=== PATIENT | female | born 1950 | race Caucasian/White ===

== ENCOUNTER → 2018-04-08 | Outpatient (CLI) | payer OTHER, MEDICARE ==
[~2018-04-08] MED LIST: ATIVAN0.5 MG PO; BACTRIM DS TAB1 EACH PO; CALCIUM 500 +1 EAC5 PO; CENTRUM CHEWAB1 EACH PO; CHERATUSSIN DA480 ML PO; CIPROFLOXACIN500 M3 GT; COMPAZINE10 MG PO; FISH OIL 1,2001 EAC4 PO; GLUCOSAMINE HC500 MG PO; LEVAQUIN 500 M500 M2 PO; MEDROLDOSEPACK PO; NIASPAN ER 101000 M1 PO; PREDNISONE 10 M10 MG PO; PRILOSEC 20 MG20 MG PO; PROAIR HFA8.5 GM IH; SPIRIVA INH; STIOLTO RESPIMAT4 GM INH; VICODIN 5-5001 EACH PO; VISTARIL 25 MG25 M1 PO; VITAMIN E400 UNIT PO; VITCB500GO PO
== END ==
LOC: M.RAD 06:48
DX: Z12.31 Encounter for screening mammogram for malignant neoplasm of breast (principal)

== ENCOUNTER → 2018-04-25 | Outpatient (CLI) | payer OTHER, MEDICARE | LOC: M.CT 06:38 | DX: I70.0 Atherosclerosis of aorta (principal); C54.1 Malignant neoplasm of endometrium ==

== ENCOUNTER → 2018-04-25 | Outpatient (CLI) | payer OTHER | LOC: M.CT 06:47 | DX: Z13.6 Encounter for screening for cardiovascular disorders (principal) ==

== ENCOUNTER → 2019-04-10 | Outpatient (CLI) | payer OTHER, MEDICARE | LOC: M.RAD 06:47 | DX: Z12.31 Encounter for screening mammogram for malignant neoplasm of breast (principal) ==

== ENCOUNTER → 2020-04-16 | Outpatient (CLI) | payer OTHER, MEDICARE ==
[~2020-04-16] MED LIST changes: +GABAPENTIN100 MG PO; +LISINOPRIL2.5 MG PO; +OXYCODONE HCL 55 MG PO; -PRILOSEC 20 MG20 MG PO; +Prilosec PO; +TIZANIDINE HCL 22 M1 PO; +VITAMIN D325 MC1 PO
== END ==
LOC: M.RAD 09:29
PROVIDERS: ATTEND Family Medicine
DX: N63.10 Unspecified lump in the right breast, unspecified quadrant (principal)

== ENCOUNTER → 2020-04-17 | Outpatient (CLI) | payer OTHER, MEDICARE ==
--- NOTE | 2020-04-23 11:08 | PATH ---
[address] [address] PATHOLOGY RPT PROCEDURE Name: CASEARACELI Room: [facility] BRI Love#: [id number] Admission: 04/17/20 Date of : 48 Discharge: Report #: [id number] Path Case #: [id number] LCA Accession Number: [id number] . 01 Material submitted: . breast - RIGHT BREAST MASS, 2:30, 7CM FROM NIPPLE. Modifiers: right, 2:00 . 01 Clinical history: . Right breast mass . 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 SEE COMMENT. (CESARIO:preeti; 04/18/2020) MBR 04/18/2020 1240 Local . 02 Comment: Specimen type: Image-guided core biopsies Tumor site: Right breast, 2:30, 7 cm from nipple Tumor quantitation: Approximately 95% of submitted tissues Histologic type: Ductal adenocarcinoma Histologic grade: III of III Tubules, nuclei and mitoses: 3, 3, 3 LVSI: Not identified Microcalcifications: Not identified Markers: Breast tumor profile pending Block: A1 . . There is no DCIS or LCIS identified. A small fragment of papilloma in A2 shows epithelial atypia. Breast tumor profile studies are pending on A1 and will be the subject of an addendum report. Reviewed with Dr. Cori Martin who agrees with the diagnosis. Debbie You(acting [facility] breast navigator) notified at approximately 1235 on 04/18/2020. . (CESARIO:preeti; 04/18/2020) . 02 Addendum: . Special studies report received from [facility], [address] [place] [address], [address], [place], [address], on case [id number], labeled with their number [id number], dated 04/22/2020. . Breast/Prognostic Marker Analysis . Specimen Site: Breast - Breast Cancer Specimen ID #: [id number] . [place] [address] PATHOLOGY RPT PROCEDURE Name: ARACELI HOLLINS [id number] Admission: 04/17/20 Date of : 48 Discharge: Report #: [id number] Path Case #: [id number] ER (Estrogen Receptor) Absent/Negative Percent: 0.00 Analysis: Manual . TN (Progesterone Receptor) Absent/Negative Percent: 0.00 Analysis: Manual . HER2 Not Over-Expressed Score: 0 Analysis: Manual Reference Range . Ki-67 High Proliferation Percent: 45.00% Analysis: Manual . Time to Fixation (Cold Ischemic Time): 3 minutes Duration of Fixation: Not Provided Type of Fixative: 10% Neutral Buffered Formalin . Comments: ER/PgR testing at [facility]. is performed in compliance with the ASCO/CAP Clinical Practice Guidelines. If the result for ER is less than 1% it is reported as Negative; if the ER result is 1-10% it is reported as Low Positive; if the ER result is greater than 10% it is reported as Positive. If the result for PgR is less than 1% it is reported as Negative; if the PgR result is equal to or greater than 1%, it is reported as Positive. . REF: Casie KH, Mallika DORADO, et al: Estrogen and Progesterone Receptor Testing in Breast Cancer. ASCO/CAP Guideline Update. DOI 10.5858/arpa.9326-0417-SD. . Whole slide image capture is performed using Yadio (Vakast) platform. Image analysis, if ordered, is performed using interclick software. . at [facility]. Aj Tavares MD [place] [address] PATHOLOGY RPT PROCEDURE Name: CASEARACELI Room: [facility]#: [id number] Admission: 04/17/20 Date of : 48 Discharge: Report #: [id number] Path Case #: [id number] Methodology The HER2 Receptor protein expression is analyzed using the [place] HER2 rabbit monoclonal antibody (clone 4B5). This assay is used for diagnostic determination of the HER2 protein over-expression in paraffin embedded, formalin fixed breast cancer tissue on the [place] Benchmark. The specimen is processed using a secondary antibody-HRP conjugate detection system. The membrane staining of the tumor is determined either by manual score or image analysis. This antibody is intended for in vitro diagnostic use. The score is reported as 0, 1+, 2+, or 3+. This test is used for clinical purposes. . A rabbit monoclonal antibody (clone SP1) that recognized the Estrogen Receptor is used to perform immunohistochemistry on routinely fixed (formalin) paraffin embedded tissue on the [place] Benchmark. The specimen is processed using a secondary antibody-HRP conjugate detection system. The percentage of stained tumor nuclei is determined either manually or by image analysis. This test is intended for in vitro diagnostic use. This test is used for clinical purposes. . A rabbit monoclonal antibody (clone 1E2) that recognized the Progesterone Receptor is used to perform immunohistochemistry on routinely fixed (formalin) paraffin embedded tissue on the [place] Benchmark. The specimen is processed using a secondary antibody-HRP conjugate detection system. The percentage of stained tumor nuclei is determined either manually or by image analysis. This test is intended for in vitro diagnostic use. This test is used for clinical purposes. . A rabbit monoclonal antibody (clone 30-9) that recognized Ki67 is used to perform immunohistochemistry on routinely fixed (formalin) paraffin embedded tissue on the [place] Benchmark. The specimen is processed using a secondary antibody-HRP conjugate detection system. The percentage of stained tumor nuclei is determined either manually or by image analysis. This test is intended for in vitro diagnostic use. This test is used for clinical purposes. . Intended Use: This antibody is intended for in vitro diagnostic (IVD) use. HER2 (4B5) is a rabbit monoclonal antibody intended for the semi-quantitative detection of HER2 antigen in sections of formalin-fixed, paraffin embedded normal and neoplastic tissue. . This antibody is intended for in vitro diagnostic (IVD) use. Estrogen Receptor (ER) (SP1) is a rabbit monoclonal antibody (IgG) that is intended for the qualitative detection of estrogen receptor (ER) antigen in sections of formalin-fixed, paraffin-embedded tissue. ER is a rabbit monoclonal antibody that recognizes human estrogen receptor alpha. . This antibody is intended for in vitro diagnostic (IVD) use. Progesterone Receptor (TN) (1E2) is a rabbit monoclonal antibody (IgG) [place] [address] PATHOLOGY RPT PROCEDURE Name: CASEARACELI Room: [facility]#: [id number] Admission: 04/17/20 Date of : 48 Discharge: Report #: [id number] Path Case #: [id number] for the qualitative detection of progesterone receptor (TN) antigen in sections of formalin fixed, paraffin embedded tissue. TN is a rabbit monoclonal antibody that recognizes the A and B forms of the human progesterone receptor. . This antibody is intended for in vitro diagnostic (IVD) use. Ki-67 (30-9) is a rabbit monoclonal antibody (IgG) directed against C-terminal portion of Ki-67 antigen. Staining for Ki-67 can be used to aid in assessing the proliferative activity of normal and neoplastic tissue. Ki-67 is a nuclear protein expressed in proliferating cells. During the cell cycle, the Ki-67 antigen is present in the G1, S, G2 and M phase but is absent in the G0 (quiescent phase). . . Disclaimer: This Test was performed by [facility]. at [address], [place] [address], [place], [address]. . [facility] is a business unit of [facility]. a wholly-owned subsidiary of [employer]. . This assay has not been validated on decalcified tissues. Results should be interpreted with caution if this specimen was decalcified given the likelihood of false negativity on decalcified specimens. . Any image(s) that accompany this report is/are a manufacturer's representative image(s) only and should not be used to render a diagnosis. . This interpretation is contingent on the specimen and the clinical information received. . For any special tests/stains performed, known positive cells or tissues are tested with each marker and examined to ensure positivity. Positive and negative internal controls, if present, react appropriately. . This analysis is an adjunct to the evaluation of the referring physician and does not represent a final diagnosis. . The immunohistochemistry tests performed at [facility]. were validated on tissue fixed in 10% neutral buffered formalin. The performance characteristics of the tests performed on tissue processed in other fixatives is not known. . HER2 testing at [facility]., is performed in compliance with the 2018 updated ASCO/CAP Clinical Practice Guideline Focused Update. If the result is EQUIVOCAL (2+), it must be confirmed by an alternative assay such as FISH or Dual VANESSA. REF: Criss ESTRADA, AVE Tena et al: Human Epidermal Growth Factor Receptor 2 [place] [address] PATHOLOGY RPT PROCEDURE Name: ARACELI HOLLINS [facility] [id number] Admission: 04/17/20 Date of : 48 Discharge: Report #: [id number] Path Case #: [id number] Testing in Breast Cancer: ASCO/CAP Clinical Practice Guideline Focused Update. J Clin Oncol 36:9831-6488, 2018. . HER2 and ER/TN ASCO/CAP guidelines require fixation in neutral buffered formalin for a minimum of 6 and a maximum of 72 hours. Fixation times less than 6 hours may not adequately preserve cell proteins. Fixation times longer than 72 hours may cause excess cross-linking of proteins reducing the antigen available for staining. Either scenario can cause reduced staining; hence false negative results are possible and should be considered for these situations if the HER2 IHC score is less than 3+ or ER or TN is negative (no staining or <1% positive). It is recommended that specimens fixed longer than 72 hours with HER2 IHC scores less than 3+ be confirmed by HER2 FISH or Dual VANESSA. The time from biopsy/excision to fixation in formalin (cold ischemic time) must be less than 1 hour. Time to fixation (cold ischemic time) greater than 1 hour should be interpreted with caution. HER2 testing, mainly HER2 by FISH, is particularly vulnerable since excessive cold ischemic time results in preferential loss of HER2 probe signals that may lead to false negative results. . SCORE STAINING PATTERN IN TUMOR CELLS INTERPRETATION RESULTS 0 No staining observed or incomplete, faint membrane staining in less than or equal to 10% of tumor cells. Negative 1+ Incomplete, faint membrane staining in greater than 10% of tumor cells. Negative 2+ Weak to moderate complete membrane staining observed in greater than 10% of tumor cells. Equivocal* *Must be confirmed by alternative assay (IHC/FISH/Dual VANESSA) 3+ Intense, complete membrane staining in greater than 10% of tumor cells. Positive . A complete copy of the report is on file. . Professional and Technical services performed by [facility]. at [address], [place] [address], [place] [address]. . (CESARIO:carlos 04/23/2020) . [place]Freddie/04/23/2020 Addendum Electronically Signed by Peter Alvarez MD, Pathologist . 02 Electronically signed: . Peter Alvarez MD, [place] [address] PATHOLOGY RPT PROCEDURE Name: ARACELI HOLLINS Room: [facility]#: [id number] Admission: 04/17/20 Date of : 48 Discharge: Report #: [id number] Path Case #: [id number] NPI- [id number] . 01 Gross description: . The specimen is received in formalin, labeled "Araceli Hollins, right breast 2:30 7 cm from nipple". Received are multiple needle cores of fibrofatty tissue measuring 1.3 x 0.8 x 0.1 cm in aggregate dimensions. The specimen is submitted entirely in cassettes A1 through A3. The cold ischemic time is 3 minutes. The total formalin fixation time is 12 hours and 37 minutes. (CAA; 04/17/2020) QAC/QAC 04/17/2020 1705 Local . 02 Pathologist provided ICD-10: C50.911 . 02 CPT . 071162 Specimen Comment: A courtesy copy of this report has been sent to [phone] Specimen Comment: [phone], Specimen Comment: Report sent to ,DR LUU / DR WONG Performed at: [address] [facility], [place], [place] [address] MD Jonh Cheatham MD Phone: [phone] Performed at: 02 [facility] [address], [place], [place] [id number] MD Peter Alvarez MD Phone: [phone]
== END | disposition home or self-care (01) ==
LOC: M.ULTRA 07:49
PROVIDERS: ATTEND Family Medicine
DX: C50.911 Malignant neoplasm of unspecified site of right female breast (principal); R92.1 Mammographic calcification found on diagnostic imaging of breast; J44.9 Chronic obstructive pulmonary disease, unspecified; Z88.0 Allergy status to penicillin; Z88.8 Allergy status to other drugs, medicaments and biological substances; Z79.899 Other long term (current) drug therapy; Z98.890 Other specified postprocedural states

== ENCOUNTER → 2020-04-29 | Outpatient (CLI) | payer OTHER ==
[2020-04-29 13:33] LABS: CREATININE 0.8 mg/dL (0.6-1.3)
== END ==
LOC: M.LAB 13:09 → M.MRI 14:30
PROVIDERS: ATTEND Surgery
DX: C50.919 Malignant neoplasm of unspecified site of unspecified female breast (principal); Z90.12 Acquired absence of left breast and nipple; R92.1 Mammographic calcification found on diagnostic imaging of breast

== ENCOUNTER 2020-05-07 05:59 | Observation (INO) | payer OTHER, MEDICARE ==
[~2020-05-07] VITALS: Ht 157.5 cm; Wt 75.3 kg
--- NOTE | ~2020-05-07 | H ---
[address] [address] HISTORY AND PHYSICAL Name: ARACELI WOODRUFF Room: [address] Jolie Love#: [id number] Admission: 05/07/20 Attend Phys: Luis Norton DO Discharge: 05/08/20 Date of : 48 Report #: [id number] THIS REPORT FOR: //name// cc: Chye Kim MD, Tuongvan T. MD ~ THIS REPORT FOR: //name// Please refer to the History and Physical performed in the physician's office. By: [facility]3Medical Records Staff [facility] /[facility]
--- NOTE | ~2020-05-07 | OP ---
[address] [address] OPERATIVE REPORT Name: ARACELI WOODRUFF Room: [address] Jolie Love#: [id number] Admission: 05/07/20 Attend Phys: Luis Norton DO Discharge: 05/08/20 Date of : 48 Report #: [id number] THIS REPORT FOR: //name// cc: Chey Kim MD, Tuongvan T. MD ~ THIS REPORT FOR: //name// CC: Luis Carson MD DICTATED BY: Mary Perez DO DATE OF SERVICE: 05/07/2020 Dictating operative report for Dr. Luis Norton DO PREOPERATIVE DIAGNOSIS: Invasive ductal carcinoma of the right breast. POSTOPERATIVE DIAGNOSIS: Invasive ductal carcinoma of the right breast. PRIMARY SURGEON: Luis Norton DO TIP PRINTER: Mary Perez DO, PGY2 OPERATION PERFORMED: Right simple mastectomy and right axillary deep sentinel lymph node biopsy and left subclavian vein Port-A-Cath placement with fluoroscopy guidance. ANESTHESIA: General. ESTIMATED BLOOD LOSS: 20 mL. SPECIMEN REMOVED: Right breast and right axillary sentinel lymph node. COMPLICATIONS: None. INDICATIONS FOR PROCEDURE: The patient is a pleasant 69-year-old female that presented to our office with invasive ductal carcinoma of the right breast. She was discussed at the multidisciplinary tumor board. She did have a history of previous left breast cancer as well, was recommended based on her pathology and tumor markers that she undergo a right mastectomy with sentinel lymph node dissection for biopsy. The procedure, risks, benefits, possible complications to include bleeding, infection, injury to surrounding structures, need for additional surgery, wound healing complications, pneumothorax, numbness or [address] [address] OPERATIVE REPORT Name: ARACELI WOODRUFF Room: [address] Jolie Love#: [id number] Admission: 05/07/20 Attend Phys: Luis Norton, DO Discharge: 05/08/20 Date of : 48 Report #: [id number] tingling at the incision site, risks of anesthesia and other risks of surgery were all discussed with the patient in great detail. She voiced complete understanding and wished to proceed with surgery. DESCRIPTION OF PROCEDURE: Informed consent was obtained. The patient was taken to the operating room and placed supine on the operating room table. General LMA anesthesia was induced without difficulty. SCDs were placed on bilateral lower extremities. Preoperative antibiotics were given. The patient's left arm was tucked at her side with all pressure points padded. The right breast and axilla were prepped and draped in the standard sterile fashion. Marking pen was used to melanie out our planned incision. A timeout was performed to ensure correct patient and procedure. We began by making an elliptical incision on the right breast around the nipple including the previous biopsy site using a #10 blade scalpel. The incision was carried down through the subcutaneous tissue using electrocautery along the inferior aspect of the breast. Electrocautery was used to dissect down to the inframammary fold. Dissection was carried down all the way to the level of the muscle fascia. This was done in the same fashion along the superior aspect of the breast all the way up to the level of the clavicle. The medial aspect of the breast, we dissected down to the level of the muscle fascia and then began to remove the breast from the muscle using electrocautery ensuring that we left the fascia along the way. Hemostasis was achieved using electrocautery. Once the entire right breast was removed, it was then marked with a short stitch superior, a long stitch lateral. Prior to making our incision, we had injected Lymphazurin blue in 4 quadrants around the nipple. Neoprobe was also used to check our uptake at the nipple prior to beginning of the case. Uptake at the nipple was noted to be somewhere between 5000 and 5500. Once the breast was completely excised and we were ready to perform our sentinel lymph node biopsy, the neoprobe was again brought into the field and used to direct us in the correct direction. A deep sentinel lymph node was easily identified, was hot and blue with uptake of up to 675. This was excised without difficulty using a combination of blunt dissection and electrocautery. Once this was passed off for specimen, the axilla was reexamined. Neoprobe was used to check for a second sentinel lymph node. There was no further uptake in the axilla. Our surgical site was then inspected to ensure hemostasis. The wound was copiously irrigated with sterile water. Tom was placed within the surgical site and a 19-Turkish NILS drain was left behind. The subcutaneous tissues were then reapproximated using 3-0 Vicryl suture in a simple interrupted fashion along the incision. The skin was then closed using a 4-0 Monocryl suture in a running subcuticular fashion. Skin was cleansed and dried. Sterile dressing was applied using Mastisol, Steri-Strips, and a large Tegaderm. Once this portion of the case was complete, we then elected to try down the drapes and the left chest was then prepped and draped in the standard sterile fashion in order to perform our Port-A-Cath placement. An 18-gauge finder needle was used to access the left subclavian vein easily with 1 pass of the needle. Dark venous blood return was noted. The syringe was removed and guidewire was passed through the needle. The guidewire passed [facility] [address] [place] [address] OPERATIVE REPORT Name: ARACELI WOODRUFF Room: [address] Jolie Love#: [id number] Admission: 05/07/20 Attend Phys: Luis Norton DO Discharge: 05/08/20 Date of : 48 Report #: [id number] easily without any resistance. The needle was removed. C-arm was brought in to ensure our guidewire was in correct position. Initial escrow secretary images showed that our guidewire was in satisfactory position in the superior vena cava. C-arm was backed away. A #15 blade scalpel was used to make an incision contiguous with the entry site of our guidewire to make room for our port. The incision was carried down through subcutaneous tissues using electrocautery. Combination of electrocautery and blunt dissection were used to form a pocket for our port. Metzenbaum scissors were used to free the wire from the surrounding tissues. Once this was done, C-arm was brought back in. Our dilator and breakaway catheter were then passed over the wire under fluoroscopy vision, the inner dilator and guidewire were then removed. Once this was done, our port catheter was then advanced through the breakaway catheter. C-arm was again used to obtain an image to ensure that the tip of our port catheter was in satisfactory position in the superior vena cava. Once this was done, the breakaway catheter was then broken and removed. Another image was obtained to ensure that our port catheter remained in good position. Once this was done, the C-arm was taken away and the wire within the catheter was removed. The catheter was trimmed to the appropriate length and then attached to our port. Once this was done, a Morrow needle with sterile saline was used to access the port. Dark venous blood return was noted. Catheter flushed very easily. We then secured our port in 3 positions with 2-0 Prolene suture. Once the port was secured in place, the port was then packed with 3000 units of heparin. The incision was then reapproximated. The subcutaneous tissues were approximated using 3-0 Vicryl suture in a simple interrupted fashion. Skin was closed using 4-0 Monocryl suture in a running subcuticular fashion. Skin was cleansed and dried and Dermabond was applied to the incision. The patient tolerated the procedure very well. Once the drapes were taken down, a pressure dressing was placed on our mastectomy site with fluffs, ABD pads and an Eros wrap. The patient was allowed to awaken in the operating room and she was transferred to the PACU in stable condition with plans for a post-procedure chest x-ray. She will be admitted to the floor for further observation and occupational therapy evaluation. By: [id number] Janeth Norton DO /delores
[~2020-05-07 05:59] MED LIST changes: -OXYCODONE HCL 55 MG PO
[2020-05-07 06:30] VITALS: BP 132/78
[2020-05-07 06:36] LABS: HEMATOCRIT 42.9 % (37.0-47.0); HEMOGLOBIN 14.6 gm/dL (12.0-15.0); MCH 29.7 pg (26.0-34.0); MCHC 34.1 g/dL (28.0-37.0); MCV 87.1 fL (80.0-100.0); MPV 10.3 fl. (7.2-11.1); RBC 4.93 mil/uL (4.20-5.00); RDW-CV 14.2 % (10.5-14.5); WBC 4.8 thou/uL (4.0-11.0)
[2020-05-07 06:50] LABS: CALCIUM 8.7 mg/dL (8.5-10.1); CREATININE 0.8 mg/dL (0.6-1.3); POTASSIUM 3.7 mmol/L (3.5-5.1)
--- NOTE | 2020-05-07 09:07 | EKG ---
[place] [address] ELECTROCARDIOGRAM REPORT Name: ARACELI WOODRUFF Room: [address]R.#: [id number] Admission: 05/07/20 Attend Phys: Luis Norton DO Discharge: Date of : 48 Date of Service: 05/07/2037 Report #: [id number] THIS REPORT FOR: //name// [facility] Test Date: 2020-05-07 Test Time: 06:37:33 Pat Name: ARACELI WOODRUFF Department: Room: [place] [address] Gender: F Dining Room Attendant: GEORGINA : 1950 Requested By: Luis Norton Order Number: [id number] MD: Russel Sims Measurements Intervals [place] Rate: 66 P: 57 IN: 156 QRS: 25 QRSD: 76 T: 33 QT: 411 QTc: 431 Interpretive Statements Sinus rhythm Compared to ECG 08/09/2017 03:55:58 No significant changes Electronically Signed On 05-07-2020 9:06:29 CDT by Russel Sims [email or web address] <ELECTRONICALLY SIGNED> By: Russel Sims MD, [facility] 05/07/20905 6 6 Russel Sims MD, [facility] /EPI
[2020-05-07 12:26] VITALS: BP 143/81
[2020-05-07 17:45] VITALS: BP 127/70
--- NOTE | 2020-05-07 17:59 | NUR ---
PT ADMITTED TO ROOM 109 S/P R MASTECTOMY. PT DENIES PAIN, GIVEN TYLENOL FOR MIN DISCOMFORT. PT UP AMBULATING WITH SBA TO BATHROOM. PT ADVANCED TO REGULAR DIET AND TOLERATES WELL. VSS, SURGICAL DRESSING TO CHEST CDI, NO OTHER COMPLAINTS THIS SHIFT
[2020-05-07 20:00] VITALS: BP 120/56
[2020-05-08] VITALS: BP 142/54
[2020-05-08 04:00] VITALS: BP 140/62
--- NOTE | 2020-05-08 04:58 | NUR ---
PT A&O X 4. VSS ON RA. DENIED PAIN. DRESSING INTACT. PT UP INDEPENDENTLY IN THE ROOM. NILS DRAIN IN PLACE. PT SLEEPING/RESTING QUIETLY THROUGH THE NIGHT. NO OTHER CONCERNS AT THIS TIME. WILL CONTINUE TO MONITOR.
[2020-05-08 05:19] LABS: HEMATOCRIT 40.4 % (37.0-47.0); HEMOGLOBIN 13.6 gm/dL (12.0-15.0); MCH 29.2 pg (26.0-34.0); MCHC 33.7 g/dL (28.0-37.0); MCV 86.7 fL (80.0-100.0); MPV 10.8 fl. (7.2-11.1); RBC 4.66 mil/uL (4.20-5.00); RDW-CV 13.9 % (10.5-14.5); WBC 12.8 thou/uL (4.0-11.0)
[2020-05-08 05:36] LABS: CALCIUM 8.7 mg/dL (8.5-10.1); CREATININE 0.7 mg/dL (0.6-1.3); MAGNESIUM 2.1 mg/dL (1.8-2.4); PHOSPHORUS* 3.4 mg/dL (2.5-4.9)
[2020-05-08 08:00] VITALS: BP 161/82
[2020-05-08 10:36] VITALS: BP 161/82
--- NOTE | 2020-05-08 11:13 | NUR ---
ORDER FOR HOME HEALTH FOR DRAIN CARE. PT.DECLINED HOME HEALTH. SHE SAID SHE KNEW HOW TO CARE FOR THEM. HER FAMILY CAN HELP HER IF NEEDED. CHRISTIAN MORALES AWARE.
[2020-05-08] MEDS ORDERED: OXYCODONE HCL 55 MG PO (11:18)
--- NOTE | 2020-05-08 12:02 | NUR ---
RECEIVED REPORT FOR NOC SHIFT. PATIENT UP AD CONSTANZA. 20G IV IN L FOOT, PATENT. VSS. LSCTA. BOWEL SOUNDS ACTIVE. PATIENT TO DISCHARGE TODAY. PATIENT EDUCATED ON NILS DRAIN AND VERBALIZES UNDERSTANDING TO MONITOR DRAIN AND AMOUNT DAILY. DRESSINGS IN PLACE. NO REDNESS OR SWELLING NOTED. DR. MONZON IN TO SEE PATIENT THIS AM AND PUT IN ORDERS TO DISCHARGE PATIENT. ALL DISCHARGE EDUCATION GIVEN AND PATIENT VERBALIZED UNDERSTANDING. PATIENT DAUGHTER PICKED PATIENT UP. PATIENT ESCORTED TO CAR AND ASSISTED INTO CAR.
--- NOTE | 2020-05-13 13:07 | PATH ---
[address] [address] PATHOLOGY RPT PROCEDURE Name: ARACELI HOLLINS Room: [address] Jolie Love#: [id number] Admission: 05/07/20 Date of : 48 Discharge: 05/08/20 Report #: [id number] Path Case #: [id number] [facility] Accession Number: [id number] . 01 Material submitted: . PART A: breast - RIGHT BREAST. Modifiers: right PART B: lymph node - RIGHT SENTINEL NODE. Modifiers: right . 01 Clinical history: . Infiltrating ductal carcinoma left breast. A. Long stitch lateral, short stitch superior. . 02 Diagnosis: A. Right breast: - INFILTRATING DUCTAL ADENOCARCINOMA, HIGH GRADE, SPANNING 12 MM, IN ASSOCIATION WITH PRIOR BIOPSY SITE, WITH INVOLVEMENT OF SUPERIOR/ANTERIOR MARGIN FOR AT LEAST 5 MM SPAN. - FOCAL DUCTAL CARCINOMA IN SITU (DCIS), NUCLEAR GRADE III, SOLID TYPE, SPANNING 1 MM. SEE COMMENT. . B. Right sentinel node: - One benign lymph node (0/1). See comment. (CESARIO:jim; 05/13/2020) . . Surgical Pathology Cancer Case Summary . Protocol posting date: December 2019 . INVASIVE CARCINOMA OF THE BREAST: Resection . . Procedure ___ Total mastectomy (including nipple-sparing and skin-sparing mastectomy) . Specimen Laterality ___ Right . + Tumor Site + ___ Upper inner quadrant . Tumor Size ___ Greatest dimension of largest invasive focus >1 mm (specify exact measurement) (millimeters): 12 mm . Histologic Type ___ Invasive carcinoma of no special type (ductal) [place] [address] PATHOLOGY RPT PROCEDURE Name: ARACELI HOLLINS Room: [address] Jolie Love#: [id number] Admission: 05/07/20 Date of : 48 Discharge: 05/08/20 Report #: [id number] Path Case #: [id number] Histologic Grade ([place] Histologic Score) . Glandular (Acinar)/Tubular Differentiation ___ Score 3 (<10% of tumor area forming glandular/tubular structures) . Nuclear Pleomorphism ___ Score 3 (vesicular nuclei, often with prominent nucleoli, exhibiting marked variation in size and shape, occasionally with very large and bizarre forms) . Mitotic Rate ___ Score 3 . Overall Grade ___ Grade 3 (scores of 8 or 9) . + Tumor Focality + ___ Single focus of invasive carcinoma . Ductal Carcinoma In Situ (DCIS) ___ Present + ___ Negative for extensive intraductal component (EIC) . + Size (Extent) of DCIS + Estimated size (extent) of DCIS is at least: 1 mm + Number of blocks with DCIS: 1 + Number of blocks examined: 10 . + Architectural Patterns + ___ Solid . + Nuclear Grade + ___ Grade III (high) . + Necrosis + ___ Not identified . + Lobular Carcinoma In Situ (LCIS) + ___ Not identified . Tumor Extension: Skin ___ Skin is present and uninvolved . Nipple ___ DCIS does not involve the nipple epidermis . Skeletal Muscle ___ [place] [address] PATHOLOGY RPT PROCEDURE Name: CASEARACELI Room: [address] Jolie Love#: [id number] Admission: 05/07/20 Date of : 48 Discharge: 05/08/20 Report #: [id number] Path Case #: [id number] . Margins . Invasive Carcinoma Margins . ___ Positive for invasive carcinoma ___ Superior/Anterior + Extent (specify): At least 5 mm . DCIS Margins ___ Uninvolved by DCIS . Distance from closest margin: ___ Specify 4 mm . Regional Lymph Nodes ___ Uninvolved by tumor cells Total Number of Lymph Nodes Examined: 1 . Treatment Effect in the Breast ___ No known presurgical therapy . + Lymphovascular Invasion + ___ Not identified . + Dermal Lymphovascular Invasion + ___ Not identified . . PATHOLOGIC STAGE CLASSIFICATION (pTNM, AJCC 8TH EDITION) . Primary Tumor (pT) ___ pT1c:Tumor >10 mm but less than or equal to 20 mm in greatest dimension . Regional Lymph Nodes Modifier ___ (sn):[place] node evaluated. . Regional Lymph Nodes (pN) ___ pN0:No regional lymph node metastasis identified or ITCs only# . + Ancillary Studies . + ___ Breast Biomarker Testing Performed on Previous Biopsy + Testing Performed on A1 . + Estrogen Receptor (ER) + ___ [place] [address] PATHOLOGY RPT PROCEDURE Name: CASEARACELI Room: [address] Jolie Love#: [id number] Admission: 05/07/20 Date of : 48 Discharge: 05/08/20 Report #: [id number] Path Case #: [id number] + Progesterone Receptor (PgR) + ___ Negative . + HER2 (by immunohistochemistry) + ___ Negative (Score 0) . + ___ Ki-67 percentage of positive nuclei: 45% . + Microcalcifications + ___ Present in non-neoplastic tissue QMS 05/13/2020 1209 Local . 02 Comment: The tumor is seen to involve at least a 5 mm span of the inked superior/anterior margin in each of slides A3 through A5. Properly controlled keratin AE1/AE3 performed on B1 shows no evidence of metastatic tumor. (CESARIO:jim; 05/13/2020) . 02 Electronically signed: . Peter Alvarez MD, Pathologist NPI- [id number] . 01 Gross description: . A. The specimen is received in formalin, labeled "Araceli Hollins, right breast, short superior, long lateral". Received is a 506 g mastectomy specimen measuring 20.2 cm from superior to inferior, 18.3 cm from medial to lateral, and 5.3 cm from anterior to posterior. The anterior aspect displays an attached ellipse of skin measuring 18.5 x 5.3 cm with a centrally located everted nipple and areolar complex, measuring 1.5 x 1.4 and 4.3 x 3.9 cm, respectively. The specimen is inked as follows: Superior/anterior-blue, inferior/anterior-green, posterior-black. Sectioning reveals a previous biopsy site, with plastic clips present, measuring 0.5 x 0.5 x 0.4 cm, which is 0.3 cm from the closest margin (superior/anterior). The previous biopsy site is surrounded by a well-demarcated white mass measuring 1.2 x 1.1 x 0.8 cm, which grossly abuts the superior/anterior margin. The mass and previous biopsy site are located in the upper inner quadrant. The remainder of the specimen displays bright yellow fibrofatty cut surfaces with a moderate amount of residual blue dye identified. No additional nodules or lesions are noted grossly. The specimen is submitted representatively as follows: . A1 perpendicular section through nipple A2-A6 entire mass and previous biopsy site submitted from lateral to medial aspects A7 upper outer quadrant A8 lower outer quadrant A9 [place] [address] PATHOLOGY RPT PROCEDURE Name: ARACELI HOLLINS Room: [address] Jolie CarmenVanitaVesna.#: [id number] Admission: 05/07/20 Date of : 48 Discharge: 05/08/20 Report #: [id number] Path Case #: [id number] A10 upper inner quadrant. . B. The specimen is received in formalin, labeled "Araceli Hollins, right sentinel node". Received is a segment of bright yellow lobulated tissue measuring 3.3 x 2.1 x 0.9 cm in greatest dimensions. Sectioning reveals a single lymph node measuring 1.2 cm. The lymph node is bisected and entirely submitted in cassette B1. Immunohistochemical stains are ordered. (CAA; 05/08/2020) QAC/QAC 05/13/2020 0945 Local . 02 Pathologist provided ICD-10: C50.911, D05.11 . 02 CPT . 389144, 655751, [id number] Specimen Comment: A courtesy copy of this report has been sent to [phone] Specimen Comment: [phone] Specimen Comment: Report sent to / DR WONG Performed at: [address], [place], [place] [id number] MD Jonh Cheatham MD Phone: [phone] Performed at: [facility] [address], [place], [place] [id number] MD Peter Alvarez MD Phone: [phone]
== END 2020-05-08 11:53 | disposition home or self-care (01) ==
LOC: M.TBA 05:59 → M.SUR 07:00 → EDSTATUS 07:00 → M.PRE 07:00 → M.LAB 07:00 → M.NUC 07:00 → M.ORTHSURG 12:12
PROVIDERS: ADMIT Surgery; ATTEND Surgery
DX: Z03.818 Encounter for observation for suspected exposure to other biological agents ruled out (principal); C50.911 Malignant neoplasm of unspecified site of right female breast